=== PATIENT | male | born 2000 | race African-American/Black ===

== ENCOUNTER 2024-12-30 19:20 | Emergency (ER) | payer OTHER, SELFPAY ==
--- NOTE | ~2024-12-30 | XR_ITS ---
CLINICAL HISTORY: sob 2 view chest x-ray Comparison: None Findings: No consolidation or effusion. Normal size heart. No acute fracture. IMPRESSION: No acute cardiopulmonary process. This document has been electronically signed by: Renee Lam DO on 12/30/2024 20:01:01
[2024-12-30 19:25] VITALS: BP 128/78; PULSE 91; RESP 18; TEMP 36.9; O2SAT 96; BMI 28.1
--- NOTE | 2024-12-30 19:25 | ED_ITS ---
HPI - General Adult General Chief complaint: Extremity Problem Stated complaint: painful lump on right leg, sob Time Seen by Provider: 12/30/24 21:16 Source: patient Mode of arrival: ambulatory Limitations: no limitations History of Present Illness ED Provider: HPI narrative: Patient has had a painless lump of the right fofana for last 2 weeks been to [facility] had a CT scan and ultrasound comes here for 2nd opinion patient has been seen in the hospital at least 4 times for the same denies any trauma or injury Related Data Allergies Allergy/AdvReac Type Severity Reaction Status Date / Time No Known Allergies Allergy Verified 12/30/24 19:29 Review of Systems 2 Review of Systems: Yes all other systems are reviewed and are negative [facility] Social History Social History Advance Directives: No Advance Directives Information Provided: No Physical Exam ED Vital Signs: Vital Signs - 24 hr 12/30/24 19:25 12/30/24 21:55 Temperature 98.4 F 97.8 F Pulse Rate 91 78 Respiratory Rate 18 16 Blood Pressure 128/78 124/78 Pulse Oximetry 96 98 Oxygen Delivery Method Room Air Room Air BMI result Body Mass Index 28.1 Extrem Ankle/foot/toe images: 2 1. 3 x 3 cm fluctuant swelling nontender no signs of infection Course Course Course Narrative: This is a Rapid Medical Exam performed in triage by Niru Dean PA-C. Full HPI, ROS and PE to be performed by primary ED provider. 24 yo M presenting to the ED c/o lump to R leg noted on the & painful calf x yesterday. Also reports feels heavier to breath x yesterday. Admits to previous taking hormones for a few years however no longer taking. Patient has been seen at [facility] multiple times for similar symptoms states he had negative CT previously & was seen today & had negative US. Patient states he wants a second opinion. Denies travel, hx clots or smoking PE: painless lump to R anterior fofana. +R calf ttp. No pitting edema, NV intact Plan: EKG, labs, CXR, SARs Procedures Abscess I/D Site: lower extremity Side (if applicable): right Technique: needle aspiration Amount of fluid expressed (mL): 2 Sent for culture/gram staining?: No Irrigation: No Packing used?: none Medical Decision Making Medical Decision Making [facility] Narrative: Patient has soft tissue swelling of the right fofana needle aspiration done and reveals serosanguineous fluid 2 cc which was drained swelling disappeared patient is feeling much better likely this happened from blunt trauma which patient does not remember Lab Data [facility] Lab Attestation statement: I reviewed the patient's lab results. 12/30/24 20:03 12/30/24 20:03 Labs: Lab Results 12/30/24 Range/Units 20:03 WBC 3.9 L (4.8-10.8) X10*3/uL RBC 5.13 (4.60-5.80) X10*6/uL Hgb 15.4 (14.0-18.0) g/dl Hct 44.1 (42.0-52.0) % MCV 86.0 (80.0-98.0) fL MCH 30.0 (27.0-33.0) pg MCHC 34.9 (31.0-36.0) g/dl RDW 12.5 (11.0-16.0) % Plt Count 191 (160-400) X10*3/uL MPV 11.6 (9.4-12.4) fL Immature Gran % (Auto) 0.3 (0.0-0.4) % Neut % (Auto) 40.6 L (45-73) % Lymph % (Auto) 38.8 (20-40) % Brooks % (Auto) 16.5 H (2-11) % Eos % (Auto) 3.3 (0-4) % Baso % (Auto) 0.5 (0-2) % Lymph # (Auto) 1.5 (1.2-4.9) X10*3/uL Brooks # (Auto) 0.6 (0.1-1.2) X10*3/uL Eos # (Auto) 0.1 (0.0-0.4) X10*3/uL Baso # (Auto) 0.0 (0.0-0.2) X10*3/uL Abs Immat Gran (auto) 0.01 (0.00-0.03) X10*3/uL Absolute Neuts (auto) 1.6 L (2.0-8.3) x10*3/uL Absolute Nucleated RBC 0.000 (0.0-0.012) X10*3/uL Nucleated RBC % (auto) 0.0 (0.0-0.2) /100WBC PT 11.2 (10.9-12.4) SEC INR 1.0 (0.9-1.1) Sodium 141 (135-145) mmol/L Potassium 3.7 (3.3-5.1) mmol/L Chloride 107 (96-108) mmol/L Carbon Dioxide 28 (22-29) mmol/L Anion Gap 10 L (12-20) BUN 10 (9-16) mg/dL Creatinine 1.02 (0.5-1.4) mg/dL Estim Creat Clear Calc 121.5 Estimated GFR > 60 Random Glucose 107 (60-115) mg/dL Calcium 9.7 (8.4-10.2) mg/dL B-Natriuretic Peptide < 10 (<100) pg/mL Influenza Type A (PCR) NEGATIVE (Negative) Influenza Type B (PCR) NEGATIVE (Negative) RSV RNA Qual (PCR) NEGATIVE (Negative) SARS-CoV-2 RNA (RT-PCR) NEGATIVE (Negative) Discharge Plan Discharge Clinical Impression: Hematoma of leg Patient Disposition: Home, Self-Care Instructions: Contusion in Adults (ED) Additional Instructions: Local care as advised You do not need any more testing for this likely you had a contusion and fluid collection which was drained Interventions: ED Discharge Assessment Last Done: 12/30/24 21:55 Discharge Date/Time: 12/30/24 21:56 Print Language: Yoruba
[2024-12-30 20:09] LABS: MANUAL DIFF FLAG NO
[2024-12-30 20:22] LABS: Anion Gap 10 (12-20); Blood Urea Nitrogen 10 mg/dL (9-16); Calcium 9.7 mg/dL (8.4-10.2); Carbon Dioxide 28 mmol/L (22-29); Chloride 107 mmol/L (96-108); Creatinine Clr Calc Pharmacy 121.5; Estimated Glomerular Filt Rate > 60; Glucose Random 107 mg/dL (60-115); Potassium 3.7 mmol/L (3.3-5.1); Sodium 141 mmol/L (135-145)
[2024-12-30 20:30] LABS: B Type Natriuretic Peptide < 10 pg/mL (<100)
[2024-12-30 20:33] LABS: Basophils Percent Auto 0.5 % (0-2); Eosinophils Absolute Auto 0.1 X10*3/uL (0.0-0.4); Eosinophils Percent Auto 3.3 % (0-4); Hematocrit 44.1 % (42.0-52.0); Hemoglobin 15.4 g/dl (14.0-18.0); Imm Gran Abs Auto 0.01 X10*3/uL (0.00-0.03); Imm Gran Pct Auto 0.3 % (0.0-0.4); Lymphocytes Absolute Auto 1.5 X10*3/uL (1.2-4.9); Lymphocytes Percent Auto 38.8 % (20-40); Mean Corpuscular HGB Conc 34.9 g/dl (31.0-36.0); Mean Platelet Volume 11.6 fL (9.4-12.4); Monocytes Absolute Auto 0.6 X10*3/uL (0.1-1.2); Monocytes Percent Auto 16.5 % (2-11); Neutrophils Absolute Auto 1.6 x10*3/uL (2.0-8.3); Neutrophils Percent Auto 40.6 % (45-73); Platelet Count 191 X10*3/uL (160-400); Red Blood Count 5.13 X10*6/uL (4.60-5.80); Red Cell Distribution Width 12.5 % (11.0-16.0); White Blood Count 3.9 X10*3/uL (4.8-10.8)
[2024-12-30 20:43] LABS: Prothrombin Time 11.2 SEC (10.9-12.4)
[2024-12-30 20:47] LABS: Influenza A PCR NEGATIVE (Negative); Influenza B PCR NEGATIVE (Negative); Resp Syncy Virus RNA Qual PCR NEGATIVE (Negative); SARS COV2 PCR INHOUSE NEGATIVE (Negative)
[2024-12-30 21:55] VITALS: BP 124/78; PULSE 78; RESP 16; TEMP 36.6; O2SAT 98
--- NOTE | 2024-12-30 21:56 | PC.NURSE ---
ambulates steadily with no symptoms
== END 2024-12-30 21:56 | disposition home or self-care (01) ==
PROVIDERS: Physician Assistant; Emergency Provider Internal Medicine
DX: S80.11XA Contusion of right lower leg, initial encounter (principal); X58.XXXA Exposure to other specified factors, initial encounter; R06.02 Shortness of breath; M79.661 Pain in right lower leg; R22.41 Localized swelling, mass and lump, right lower limb; Y93.9 Activity, unspecified; Y92.9 Unspecified place or not applicable; Y99.9 Unspecified external cause status
CPT/HCPCS: 0241U; 10160; 36415; 71046; 80048; 83880; 85025; 85610; 99283

== ENCOUNTER → 2024-12-30 19:31 | Outpatient (BNV) | payer SELFPAY | PROVIDERS: Visit Provider Radiology Diagnostic Radiology | DX: R07.9 Chest pain, unspecified (principal) | CPT/HCPCS: 71046 ==

== ENCOUNTER 2025-02-13 10:26 | Emergency (ER) | payer OTHER, SELFPAY ==
--- OUTSIDE RECORDS SUMMARY | 2024-12-24 07:00 | XMS_ITS | Continuity of Care Document ---
Author Organization [facility] Address [address] [facility] [address] [place] [address] Phone Care Team Providers Care Aromatherapist Name Role Phone Services, Enabling Unavailable Unavailable Elvi Wilson Unavailable Unavailable Procedures Procedure Date [facility] Redetermination Advance Directives Directive Yes / No Effective Date File Name No Information Encounters Encounter Description Practice Location Reason(s) For Visit Diagnoses Date Provider Providers Copied on Encounter [facility], [address] [place] [address],[address], [place], [place], [id number], tel:[phone] Enabling Services No Information 5 Services Enabling. [address] [place], [address]. tel:[phone] Consulting Provider: Elvi Wilson. [facility], [address] [place] [address],[address], [place], [place], [id number], [place] tel:[phone] [place] [facility] Posttraumatic stress disorder 5 Z-Convert ed Provider. . Family History Family Member Type Diagnosis Age At Onset No Information Payers Payer name Insurance type Covered constitution party ID Authoriza tion(s) No Information Social History Type Description Quantity Date Captured Comments Sex Male Smoking Status No Information Chief Complaint And Reason For Visit No Information Reason For Referral Reason For Referral No Information History Of Present Illness Encounter Date Complaint History Of Prese nt Illness No Information Functional Status Date Functional Assessmen t No Information Instructions Date Instruction Additional Infor mation No Information Assessments Type Assessment Date No Information Patient Care Teams Name Effective Dates (start - stop) Status Members No Information
[2025-02-13 10:30] VITALS: BP 138/77; PULSE 105; RESP 16; TEMP 36.7; O2SAT 100; BMI 27.1
--- NOTE | 2025-02-13 11:12 | PC.NURSE ---
Patient presents with a ring stuck to his right 3rd finger. Attempted to removed with lube without success.
--- NOTE | 2025-02-13 11:18 | ED.GENADULT ---
HPI - General Adult General Chief complaint: General Medical Stated complaint: ring stuck on finger Time Seen by Provider: 02/13/25 10:30 Source: patient and RN notes reviewed Mode of arrival: ambulatory Limitations: no limitations History of Present Illness ED Provider: Era Camara PA-C [facility] narrative: This is a 24-year-old male who presents emergency department with concerns of ring stuck on right middle finger. Patient states that he fell asleep with the ring stuck on his finger and has been unable to remove it since. Denies any known injury or trauma to his finger. No other complaints or concerns at this time. MD complaint: Right middle finger ring stuck Onset (ago): day(s) Radiation: non-radiation Relieving factors: none Exacerbating factors: none Associated symptoms: denies other symptoms Treatments prior to arrival: none Related Data Allergies Allergy/AdvReac Type Severity Reaction Status Date / Time No Known Allergies Allergy Verified 02/13/25 10:33 Review of Systems Review of Systems: Yes all other systems are reviewed and are negative Constitutional: Constitutional: Reports as per [facility] Social History Social History Advance Directives: No Advance Directives Information Provided: Yes Do you have a plan to hurt others: No Plan Physical Exam ED Vital Signs: Vital Signs - 24 hr 02/13/25 10:30 02/13/25 11:30 Temperature 98.1 F 98.1 F Pulse Rate 105 H 105 H Respiratory Rate 16 16 Blood Pressure 138/77 138/77 Pulse Oximetry 100 100 Oxygen Delivery Method Room Air Room Air BMI result Body Mass Index 27.1 General: Awake, alert, and oriented X3. No acute distress. HEENT: Normal inspection CVS: Normal heart rate and rhythm. Pulses normal. Respiratory: No respiratory distress Skin: Warm, dry, no rashes noted to exposed skin. Normal skin color. Normal skin turgor. Extremities: Right middle finger with large gold colored metal ring noted to middle finger, attempted to remove, unable to do so. No open wounds or lacerations. Good capillary refill. Distal sensation circulation intact. Strong radial pulse. Neuro: Oriented X 3. No motor deficit. No sensory deficit. Medical Decision Making Medical Decision Making [facility] Narrative: This is a 24-year-old male who presents emergency department with complaints of ring stuck on right middle finger since this morning. He states that he fell asleep with a ring on his finger, awoke and has been unable to remove the ring since. On arrival, vital signs within normal limits, he does have slight tachycardia at 105bpm this is likely secondary to anxiety with not being able to remove the ring. Multiple attempts were made with lubrication to attempt to remove this ring however unable to do so. Ultimately had to use the ring cutter. We are successfully able to remove this ring. Patient tolerated procedure well without any complications or concerns. Sensation intact. No open wounds or lacerations from these procedure. Patient given strict return precautions. Patient stable for discharge. Differential Diagnosis Differential Diagnoses: The differential diagnosis associated with the presentation includes Foreign body, constrictive jewelry, contusion, edema Discharge Plan Discharge Clinical Impression: Foreign body finger, Constrictive jewelry of finger Patient Disposition: Home, Self-Care Additional Instructions: You were seen in the emergency department due to ring stuck on your finger. We removed this by cutting the ring. Your finger may be sore, ice, and taking ibuprofen and or Tylenol as needed can be helpful. If any new or worsening symptoms occur including but not limited to worsening pain, swelling, please return for re-evaluation. Interventions: ED Discharge Assessment Last Done: 02/13/25 11:30 Discharge Date/Time: 02/13/25 11:36 Print Language: Hebrew
[2025-02-13 11:30] VITALS: BP 138/77; PULSE 105; RESP 16; TEMP 36.7; O2SAT 100
--- OUTSIDE RECORDS SUMMARY | 2025-02-13 12:04 | XMS_ITS | Clinical Summary ---
Author Organization [facility] Address [address] [place] [id number] Phone Care Team Providers Care Digitizer Name Role Phone Pcp, Unknown Primary Care Provider Unavailabl e Allergies No known active allergies Medications No known medications Encounters Date Type Department Care Team Description 12/30/2024 9:25 AM EDT - 12/30/2024 11:59 PM EDT Hospital Encounter [address] [address] Roldan Garcia PA-C Discharge Disposition: Home or Self Care 12/29/2024 6:25 PM EDT Ancillary Procedure [address] [address] Roldan Garcia PA-C 12/29/2024 4:42 PM EDT - 12/29/2024 6:50 PM EDT Emergency [facility] Emergency [address] [place] [address] Discharge Disposition: Home or Self Care 12/19/2024 12:15 PM EDT Ancillary Procedure [address] [address] Tiana Pineda PA-C 12/19/2024 11:54 AM EDT - 12/19/2024 1:01 PM EDT Emergency [facility] Emergency [address] [place] [address] Discharge Disposition: Home or Self Care from Last 3 Months Social History Tobacco Use Types Packs/Day Years Used Date Smoking Tobacco: Never Smokeless Tobacco: Never Tobacco Cessation:Counseling Given: Not Answered Alcohol Use Standard Drinks/Week Comments Yes 0 (1 standard drink = 0.6 oz pur e alcohol) social Education Answer Date Recorded Are you interested in more education? Not on andres e 11/20/2022 Are you concerned about learning? Not on file 11/20/2022 No 11/20/2022 No 11/20/2022 Food Answer Date Recorded Within the past 6 months we worried whether our food would run out before we got money to buy more. Never True 12/19/2024 Within the past 6 months the food we bought just didn't last and we didn't have enough money to get more. Never True Residential Stability Answer Date Recor ded What is your housing situation today? I have lorraine sing 12/19/2024 How many times have you move d in the past 12 months? Zero (I did not move) 12/19/2024 Paying for Meds Answer Date Recorded Do you have trouble paying for medicines? No 12/19/2024 Paying Utility Bills Answer Date Record ed Do you have trouble paying your heating or elect ricity bill? No 12/19/2024 Transportation Answer Date Recorded Has the lack of transportati on kept you from medical appointments or from getting medications? No 12/19/2024 Digital Access Answer Date Recorded No 12/19/2024 Yes 12/19/2024 Do you have reliable internet access at home? Ye s 12/19/2024 Do you have a device (e.g., phone, tablet, computer) with a working camera? Yes 12/19/2024 Intimate Partner Violence Answer Date R ecorded Are you denied basic needs s uch as food, clothing, or medical care? No 12/29/2024 In the past 12 months have y ou been in a relationship with a person who hurts, threatens, or tries to control you? No 12/29/2024 Are you denied basic needs s uch as food, clothing, or medical care? No 12/29/2024 In the past 12 months have y ou been in a relationship with a person who hurts, threatens, or tries to control you? No 12/29/2024 Sex and Gender Information Value Date Recorded Sex Assigned at Male 01/17/2023 8:34 AM EDT Legal Sex Male 3:11 AM EDT Gender Identity Male 12/19/2024 11:53 AM EDT Sexual Orientation Lesbian or D[place]on 07/23/2024 12 :04 PM EST Last Filed Vital Signs Vital Sign Reading Time Taken Comments Blood Pressure 122/86 12/29/2024 6:48 PM EDT Pulse 76 12/29/2024 6:48 PM EDT Temperature 36.8 C (98.2 F) 12/29/2024 6:48 PM EDT Respiratory Rate 16 12/29/2024 6:48 PM EDT Oxygen Saturation 96% 12/29/2024 6:48 PM EDT Inhaled Oxygen Concentration - - Weight 86.2 kg (190 lb) 12/29/2024 4:41 PM EDT Height 175.3 cm (5' 9 ) 12/29/2024 4:41 PM EDT Body Mass Index 28.06 12/29/2024 4:41 PM EDT Plan of Treatment Health Maintenance Due Date Last Done Comments Adult Td,Tdap Booster 2000 DEPRESSION SCREENING 2012 HPV VACCINES (1 - Male 3-dos e series) 10/30/2015 HEPATITIS C SCREENING 2018 HIV ONE-TIME SCREENING (18-6 5 YEARS) 2018 COVID-19 VACCINE (2023-2 5 season) 2024 SMOKING Hx and SMOKELESS TOB ACCO SCREENING 12/29/2025 12/29/2024 HEPATITIS A VACCINES Aged Out No long er eligible based on patient's age to complete this topic HIB VACCINES Aged Out No longer eligi ble based on patient's age to complete this topic MENINGOCOCCAL VACCINES (ACWY) Aged Out No longer eligible based on patient's age to complete this topic MENINGOCOCCAL VACCINES (B) Aged Out N o longer eligible based on patient's age to complete this topic PNEUMOCOCCAL VACCINES (0-49 years) Aged Out No longer eligible based on patient's age to complete this topic Medical Devices Not on file Procedures Procedure Name Priority Date/Time Associated Diagnosis Comments US LOWER EXTREMITY VEINS DUPLEX (RIGHT) Routine 12/30/2024 10:03 AM EDT Right leg pain Swelling, limb US BEDSIDE Routine 12/29/2024 6:23 PM EDT US BEDSIDE Routine 12/19/2024 12:13 PM EDT from Last 3 Months Results * US Lower Extremity Veins Duplex (Right) (12/30/2024 10:03 AM EDT) Anatomical Region Laterality Modality Hip Right, Thigh Right, Knee Right, Leg Right, Ankle Right, Foot Right Ultrasound 12/31/2024 9:40 AM EDT Impressions 12/31/2024 9:42 AM EDT * No evidence of deep or superficial venous thrombosis in the visualized veins of the right lower extremity. Narrative 12/31/2024 9:42 AM EDT US LOWER EXTREMITY VEINS DUPLEX (RIGHT) Referring clinician's provided indication for this examination in Epic: Right Leg Pain; Swelling of Limb; Right lower extremity calf pain and tenderness, rule out DVT TECHNIQUE: Lower extremity venous ultrasound with color and spectral Doppler. COMPARISON: None FINDINGS: Exam Quality: Technically adequate exam demonstrates: Right lower extremity Common femoral vein: Normal compressibility and flow characteristics. Femoral vein: Normal compressibility and flow characteristics. Proximal profunda femoral vein: Normal compressibility. Popliteal vein: Normal compressibility and flow characteristics. Posterior tibial veins: Normal compressibility. Peroneal veins: Normal compressibility. Great saphenous vein: Normal compressibility at the saphenofemoral junction. Along the anteromedial aspect of the proximal and mid calf there is a 3.2 x 0.2 cm subcutaneous hypoechoic lesion, likely fluid collection persists sequela of prior trauma. No abnormal vascularity is noted. Contralateral common femoral vein: Normal compressibility. Procedure Note Vijay Mclaughlin MD - 12/31/2024 US LOWER EXTREMITY VEINS DUPLEX (RIGHT) Referring clinician's provided indication for this examination in Epic:Right Leg Pain; Swelling of Limb; Right lower extremity calf pain andtenderness, rule out DVT TECHNIQUE: Lower extremity venous ultrasound with color and spectralDoppler. COMPARISON: None FINDINGS: Exam Quality: Technically adequate exam demonstrates: Right lower extremity Common femoral vein: Normal compressibility and flow characteristics. Femoral vein: Normal compressibility and flow characteristics. Proximal profunda femoral vein: Normal compressibility. Popliteal vein: Normal compressibility and flow characteristics. Posterior tibial veins: Normal compressibility. Peroneal veins: Normal compressibility. Great saphenous vein: Normal compressibility at the saphenofemoraljunction. Along the anteromedial aspect of the proximal and mid calf there is a 3.2x 0.2 cm subcutaneous hypoechoic lesion, likely fluid collection persistssequela of prior trauma. No abnormal vascularity is noted. Contralateral common femoral vein: Normal compressibility. IMPRESSION: * No evidence of deep or superficial venous thrombosis in the visualizedveins of the right lower extremity. Roldan Garcia PA-C CV US VASCULAR Final Result * US BEDSIDE (12/29/2024 6:23 PM EDT) Anatomical Region Laterality Modality Ultrasound Narrative 12/29/2024 6:24 PM EDT Moose Asher MD 01/22/2025 2:47 PM Bedside Ultrasound Date/Time: 12/29/2024 6:24 PM Performed by: Roldan Garcia PA-C Authorized by: Roldan Garcia PA-C Exam Type: Soft Tissue Soft Tissue Exam Findings & Impression: Indications: patient with pain and swelling Body Area: Lower extremity Laterality: Right Lower Extremity Location Details: Leg Edema: the soft tissue was visualized and edema was present Fluid Collection: the soft tissue was visualized and a fluid collection was present (anechoic or mobile debris) Overall Impressions: edema and fluid collection Images: Images Saved: Yes Accession Number: [id number] Roldan Garcia PA-C IMG POINT OF CARE EXAMS [place] Result * US BEDSIDE (12/19/2024 12:13 PM EDT) Anatomical Region Laterality Modality Ultrasound Narrative 12/19/2024 12:13 PM EDT Sebastian Ulloa MD 12/21/2024 10:21 AM Bedside Ultrasound Date/Time: 12/19/2024 12:13 PM Performed by: Tiana Pineda PA-C Authorized by: Tiana Pineda PA-C Exam Type: Soft Tissue Soft Tissue Exam Findings & Impression: Indications: patient with swelling Body Area: Lower extremity Laterality: Right Lower Extremity Location Details: Leg Edema: the soft tissue was visualized and no edema was present Fluid Collection: the soft tissue was visualized and a fluid collection was present (anechoic or mobile debris) Color Doppler: the soft tissue was visualized and color doppler was not present Other Findings: 2.8 by 2 by .2 cm hypoechoic area in the subcutanious tissue of the right anterior lateral lower extremity Overall Impressions: fluid collection Images: Images Saved: Yes Accession Number: [id number] Tiana Pineda PA-C IMG POINT OF CARE EXA [place] Final Result from Last 3 Months Insurance FULL Member Subscriber Plan / Payer (Ef fective 2024-Present) Name:Lev De Los Santos Relation to Subscriber:Self Name:Lev De Los Santos Payer ID:Not on file Group ID:Not on file Type:Medicaid Address: [address] [facility] Address: [facility] [id number] [address] [phone] FULL Member Subscriber Plan / Payer (Ef fective 2024-) Name:Lev De Los Santos Relation to Subscriber:Self Name:Lev De Los Santos Payer ID:Not on file Group ID:Not on file Type:Medicaid Address: [address] [employer] [facility] Address: [address] [address] [employer] [facility] NET FULL Member Subscriber Plan / Payer ( fective 2024-) Name:Lev De Los Santos Relation to Subscriber:Self Name:Lev De Los Santos Payer ID:Not on file Group ID:Not on file Type:Medicaid Address: [address] [facility] Address: [address] [address] NET FULL Member Subscriber Plan / Payer ( fective 2024-) Name:Lev De Los Santos Relation to Subscriber:Self Name:Lev De Los Santos Payer ID:Not on file Group ID:Not on file Type:Medicaid Address: [address] [facility] Address: [address] [address] [employer] [facility] NET FULL Member Subscriber Plan / Payer ( fective 2024-) Name:Lev De Los Santos Relation to Subscriber:Self Name:Lev De Los Santos Payer ID:Not on file Group ID:Not on file Type:Medicaid Address: [address] [facility] Address: [address] [address] [employer] NET FULL Member Subscriber Plan / Payer (Ef fective 2024-Present) Name:Lev De Los Santos Relation to Subscriber:Self Name:Lev De Los Santos Payer ID:Not on file Group ID:Not on file Type:Medicaid Address: [address] [facility] Address: [place] [address] [address] [phone] [address] [place], [place] [address] [place] [address] [place] Care Teams Digitizer Relationship Specialty Start Date End Date Pcp, Unknown PCP - General 12/29/24 Additional Source Comments The information contained in this document represents components of the legal health record. It is not the complete legal health record.[facility]
== END 2025-02-13 11:36 | disposition home or self-care (01) ==
PROVIDERS: Emergency Provider Emergency Medicine
DX: M79.644 Pain in right finger(s) (principal); R00.0 Tachycardia, unspecified
CPT/HCPCS: 99283; 99284